=== PATIENT | female | born 1990 | race African-American/Black ===

== ENCOUNTER 2024-05-15 05:45 | Emergency (ER) | payer OTHER ==
[~2024-05-15] VITALS: Ht 157.5 cm; Wt 96.6 kg
[2024-05-15] MEDS: KETOROLAC TROMETHAMINE 30 MG/ML VIAL IM STA (07:40)
[2024-05-15] MEDS: HYDROCODONE/APAP 5MG-325MG TAB PO ONE (07:59)
[2024-05-15 08:31] VITALS: PULSE 87; RESP 16; TEMP 98.6; O2SAT 94
[2024-05-15] MEDS ORDERED: HYDROCODON-ACE1 EA11 PO (08:59)
== END 2024-05-15 11:03 | disposition home or self-care (01) ==
LOC: FSED 06:32
DX: S80.811A Abrasion, right lower leg, initial encounter (principal); V03.90XA Pedestrian on foot injured in collision with car, pick-up truck or van, unspecified whether traffic or nontraffic accident, initial encounter; Y93.01 Activity, walking, marching and hiking; Y92.89 Other specified places as the place of occurrence of the external cause; F41.9 Anxiety disorder, unspecified; F32.A Depression, unspecified
CPT/HCPCS: 73590; 93971; 96372; 99284; J1885

== ENCOUNTER 2024-05-30 00:50 | Emergency (ER) | payer OTHER ==
[~2024-05-30] VITALS: Ht 157.5 cm; Wt 96.6 kg
[2024-05-30 00:50] VITALS: PULSE 74; RESP 18; TEMP 97.3
[~2024-05-30 00:50] MED LIST: HYDROCODON-ACE1 EA11 PO
[2024-05-30] MEDS ORDERED: SODIUM CHLORIDE 0.9% 100 ML ONE (02:20)
[2024-05-30] MEDS ORDERED: IOPAMIDOL 370 MG/ML 100 ML INFUS..BTL INJ ONE (02:20)
[2024-05-30] MEDS ORDERED: KETOROLAC TROMETHAMINE 30 MG/ML VIAL ONE (02:27)
[2024-05-30] MEDS: ONDANSETRON HCL INJ 2MG/ML 2ML 2 MG/ML VIAL IV STA (03:42)
[2024-05-30] MEDS: FUROSEMIDE INJ 10 MG/ML 4 ML VIAL IV ONE (03:43)
[2024-05-30] MEDS: KETOROLAC TROMETHAMINE 30 MG/ML VIAL IV STA (03:43)
[2024-05-30] MEDS: SODIUM CHLORIDE 0.9% 1000ML 1,000 ML IV STA (03:44)
[2024-05-30] MEDS ORDERED: HYDROCHLOROTHIA25 MG PO (03:52)
[2024-05-30 05:40] VITALS: BP 140/84; PULSE 73; RESP 18; TEMP 98.3; O2SAT 98
== END 2024-05-30 04:02 | disposition home or self-care (01) ==
LOC: FSED 01:07
DX: R06.00 Dyspnea, unspecified (principal); J81.1 Chronic pulmonary edema; R51.9 Headache, unspecified; D64.9 Anemia, unspecified; R03.0 Elevated blood-pressure reading, without diagnosis of hypertension; S81.801A Unspecified open wound, right lower leg, initial encounter; V03.10XA Pedestrian on foot injured in collision with car, pick-up truck or van in traffic accident, initial encounter; Y93.01 Activity, walking, marching and hiking; Y92.89 Other specified places as the place of occurrence of the external cause; R94.31 Abnormal electrocardiogram [ECG] [EKG]
CPT/HCPCS: 70450; 71260; 80053; 81003; 83880; 84484; 85025; 85379; 93005; 99283; J1885; J1940; J2405; J7030; J7050; Q9967